=== PATIENT | female | born 1960 | race Caucasian/White ===

== ENCOUNTER 2017-03-15 14:49 | Outpatient (CLI) | payer OTHER ==
[2017-03-15 15:32] LABS: APPEARANCE,URINE Clear (CLEAR); COLOR,URINE Yellow (YELLOW); OCCULT BLOOD,URINE Trace-lysed (NEGATIVE); PH URINE 5.5 (5.0 - 8.0); UROBILINOGEN URINE 0.2 Eu (0.2-1.0)
[2017-03-15 15:37] LABS: AMORPHOUS SEDIMENT,UR FEW (NEGATIVE)
== END 2017-03-15 14:50 ==
LOC: LAB 14:49
PROVIDERS: ATTEND Family Medicine
DX: R10.30 Lower abdominal pain, unspecified (principal)
CPT/HCPCS: 81002; 87086

== ENCOUNTER 2017-03-16 11:42 | Outpatient (CLI) | payer OTHER ==
[2017-03-16 12:00] LABS: BASOPHILS % 0.5 (0.0-1.5); EOSINOPHILS % 2.2 % (0.0-6.8); MEAN CORPUSCULAR HEMOGLOBIN 29.5 pg (28.0-34.0); MEAN CORPUSCULAR VOLUME 86.7 fl (80.0-100.0); MONOCYTES % 4.4 % (0.0-11.0); NEUTROPHILS # 2.6 # k/uL (1.4-7.7)
[2017-03-16 12:35] LABS: eGFR (African) > 60; eGFR (Non-African) > 60
--- NOTE | 2017-03-16 13:36 | Diagnostic Imaging Report ---
EMILY MADISON [facility] [id number] [facility].[address] [id number] Report Submission Date: Mar 16, 2017 12:34:45 PM CDT Patient Study Name: ALVARO ARREOLA Date: Mar 16, 2017 12:14:24 PM CDT Modality Type: CR Gender: F Description: ABDOMEN : 60 Institution: [facility] Physician: EMILY MADISON Examination: Abdomen series History: Abdominal discomfort Findings: 2 views obtained of the abdomen. No abnormal dilation of the large or small bowel. Air and stool throughout the large bowel. No suspicious calcification projecting over the renal fossa or the lower pelvic region. Pelvic phleboliths. Right upper quadrant surgical clips. Osseous structures demonstrate degenerative changes. Impression: No obstruction. No suspicious calcifications by plain film sensitivity. Electronically signed on Mar 16, 2017 12:34:45 PM CDT by: Frederick HAILE
== END 2017-03-16 11:43 ==
LOC: LAB 11:42
PROVIDERS: ATTEND Family Medicine
DX: R10.84 Generalized abdominal pain (principal)
CPT/HCPCS: 36415; 74000; 80053; 84443; 85025

== ENCOUNTER 2018-07-04 15:39 | Outpatient (CLI) | payer OTHER ==
--- NOTE | 2018-07-04 16:19 | Diagnostic Imaging Report ---
EMILY MADISON [facility] [id number] [facility] [address] [address] Report Submission Date: Jul 04, 2018 4:16:14 PM [employer] Patient Study Name: ALVARO WAN Date: Jul 04, 2018 3:48:13 PM [employer] Modality Type: DX Gender: F Description: CHEST 2VIEW : 60 Institution: [facility] Physician: EMILY MADISON Examination: PA and lateral chest. History: Evaluate lung shabazz. CHEST XRAY COUGH AND CONGESTION Comparison exam: None provided. Findings: PA and lateral views of the chest demonstrates a normal cardiac and mediastinal silhouette. No focal infiltrate. No blunting of the costophrenic margins. Osseous structures are appropriate for age. Impression: No acute pulmonary process. Electronically signed on Jul 04, 2018 4:16:14 PM [employer] by: Frederick HAILE
== END 2018-07-04 15:40 ==
LOC: RAD 15:39
PROVIDERS: ATTEND Family Medicine
DX: R05 Cough (principal)
CPT/HCPCS: 71046